=== PATIENT | female | born 1935 | race Caucasian/White ===

== ENCOUNTER 2022-04-03 19:22 | Inpatient (IN) | payer MEDICARE, OTHER ==
[~2022-04-03] VITALS: Ht 162.6 cm; Wt 54.0 kg
[2022-04-04] MEDS ORDERED: HYDRALAZINE HCL10 MG PO (05:24)
[2022-04-04] MEDS ORDERED: NORVASC10 MG PO (05:24)
[2022-04-04] MEDS ORDERED: ALBUTEROL2.5 MG/3 M INH ×2 (05:25)
--- NOTE | 2022-04-04 06:09 | NUR ---
PATIENT IS VERY UNCOOPERATIVE AND HARD OF HEARING TO THE POINT MOST CONVERSATION HAS TO BE DONE WITH PEN AND PAPER. PATIENT HAS BEEN VERY AGITATED AND IRRITABLE THROUGHOUT THE NIGHT AND HAS TOLD STAFF MULTIPLE TIMES TO LEAVE HER ALONE. SHE HAS STATED THAT SHE DOES NOT WANT TO BE 'STUCK' AGAIN FOR LABS OF ANY KIND. SHE DOES NOT WANT TO BE SUCTIONED, TURNED IN THE BED, OR FED BEFORE HER NPO WENT INTO PLACE AT 3AM. MD AWARE OF HOW UNCOOPERATIVE PATIENT HAS BEEN. MD AT BEDSIDE WHEN PATIENT RAISED HER HAND TO SLAP
[2022-04-04 08:15] LABS: HEMOGLOBIN 13.6 gm/dl (12.3-15.3); RED BLOOD COUNT 4.39 M/UL (4.00-5.10); WHITE BLOOD COUNT 11.3 K/UL (4.5-11.0)
[2022-04-04 09:29] LABS: BUN/CREATININE RATIO 21 (0-10)
[2022-04-04] MEDS ORDERED: PROVENTIL HFA6.7 GM INH (12:22)
[2022-04-04] MEDS ORDERED: MULTIVITAMIN1 EACH PO (12:26)
[2022-04-05 06:59] LABS: HEMOGLOBIN 14.9 gm/dl (12.3-15.3); RED BLOOD COUNT 4.86 M/UL (4.00-5.10); WHITE BLOOD COUNT 11.7 K/UL (4.5-11.0)
[2022-04-05 07:56] LABS: BUN/CREATININE RATIO 26 (0-10)
--- NOTE | 2022-04-05 23:44 | NUR ---
PT CONFUSED PULLING OFF TELEMETRY. PT REFUSES TO WEAR IT. NOTIFIED DR STONE. RECIEVED NO NEW ORDERS. NOTIFIED TELEMETRY. WILL CONTINUE TO MONITOR.
--- NOTE | 2022-04-07 04:19 | NUR ---
PATIENT HAS REFUSED ALL MEDS AND TURNS. STATES SHE WANT TO BE LEFT ALONE. PATIENT ALSO HAS NO IV AND WILL NOT LET STAFF MEMBER INSERT ONE. PATIENT EDUCATED ABOUT THE NEED FOR ANTIBIOTICS BUT STILL REFUSES.
[2022-04-07 07:29] LABS: HEMOGLOBIN 14.5 gm/dl (12.3-15.3); RED BLOOD COUNT 4.93 M/UL (4.00-5.10); WHITE BLOOD COUNT 13.7 K/UL (4.5-11.0)
[2022-04-07 07:51] LABS: BUN/CREATININE RATIO 27 (0-10)
--- NOTE | 2022-04-07 11:12 | NUR ---
0830: PATIENT HEARD YELLING FROM ROOM. WHEN I WENT IN TO CHECK ON HER SHE WAS FOUND WITH HER HOT COFFEE SPILLED ON HER CHEST AND IN HER BED. SHE SAID SHE WAS REACHING FOR HER FOOD AND KNOCKED THE COFFEE OVER BY MISTAKE. IMMEDIATLEY THAT PATIENT WAS DRIED OFF AND A COOL CLOTH PLACED ON THE CHEST FOR COMFORT. UPON ASSESSMENT OF THE PATIENTS CHEST THERE IS NOTICABLE MOFFETT WETZEL INCLUDING REDNESS AND A SMALL BLISTER THAT HAS OPENED ON THE LEFT LOWER STERNAL AREA. DR. MCKEON NOTIFIED OF EVENT AND PATIENT WAS PRESCRIBED SILIDENE CREAM TO BE APPLIED TO AFFECTED AREA BID. THE DAUGHTER WAS NOTIFIED OF THE EVENT WELL.
[2022-04-07] MEDS ORDERED: PULMICORT0.5 MG/21 INH (11:33)
[2022-04-07] MEDS ORDERED: HUMIBID LA TAB600 MG PO (11:33)
[2022-04-07] MEDS ORDERED: IPRAT-ALBUT 0.5-3 ML NEB (11:33)
[2022-04-07] MEDS ORDERED: SILVADENE20 GM TOP (11:33)
[2022-04-07] MEDS ORDERED: AMOX TR-K CLV1 EAC4 PO (11:36)
[2022-04-07] MEDS ORDERED: DOXYCYCLINE HY100 M2 PO (11:36)
[2022-04-07] MEDS ORDERED: HYDROCODON-ACE1 EAC4 PO ×2 (11:40→11:47)
[2022-04-07] MEDS ORDERED: ATIVAN0.5 MG PO ×2 (11:40→11:47)
[2022-04-07] MEDS ORDERED: COLACE100 MG PO (12:03)
[2022-04-07] MEDS ORDERED: MIRALAX17 GM PO (12:03)
[2022-04-07] MEDS ORDERED: LEVOFLOXACIN750 MG PO (12:26)
--- NOTE | 2022-04-07 19:21 | NUR ---
TRYED CALLING BRUSHING OPERATOR AT [phone] WENT STRAIGHT TO AFTER HOURS VOICEMAIL.
[2022-04-08] MEDS ORDERED: LEVOFLOXACIN750 MG PO ×2 (11:54→11:58)
== END 2022-04-07 18:26 | DRG 871 ==
LOC: MED SURG 4 22:07 → PROG CARE 22:07 → MED SURG 4 04-04 15:30
PROVIDERS: Internal Medicine; ADMIT Internal Medicine
DX: A41.9 Sepsis, unspecified organism (principal); J18.9 Pneumonia, unspecified organism; J96.01 Acute respiratory failure with hypoxia; J44.0 Chronic obstructive pulmonary disease with (acute) lower respiratory infection; Z20.822 Contact with and (suspected) exposure to COVID-19; Z66 Do not resuscitate; I10 Essential (primary) hypertension; E87.6 Hypokalemia; F03.90 Unspecified dementia, unspecified severity, without behavioral disturbance, psychotic disturbance, mood disturbance, and anxiety; H91.93 Unspecified hearing loss, bilateral; Z51.5 Encounter for palliative care
CPT/HCPCS: 71045; 80048; 83735; 83880; 85025; 85610; 86140; 87040; 92610; 93005; 94640; 94664; 94760; J1650; J2543; J2920; J7070